=== PATIENT | female | born 1950 | race Caucasian/White ===

== ENCOUNTER 2020-05-10 15:38 | Emergency (ER) | payer MEDICARE, BC ==
[2020-05-10 16:42] LABS: CHLORIDE,CL 102 mmol/L (98-107); SODIUM,NA 141 mmol/L (136-145)
[2020-05-10 16:43] LABS: ACETAMINOPHEN 0 ug/ml (10-30); ANION GAP 11.7 mmol/L (10-20)
[2020-05-10 16:55] LABS: BARBITURATE SCREEN,URINE NEGATIVE (NEGATIVE); BENZODIAZEPINES SCREEN,URINE NEGATIVE (NEGATIVE); EDDP,URINE SCREEN NEGATIVE (NEGATIVE); METHAMPHETAMINE SCREEN, URINE NEGATIVE (NEGATIVE); TCA SCREEN,URINE NEGATIVE (NEGATIVE); THC SCREEN,URINE 50 NG/ML NEGATIVE (NEGATIVE)
[2020-05-10] MEDS ORDERED: Cephalexin 500 MG Cap PO ONE (17:09)
--- NOTE | 2020-05-10 18:57 | EDM.PDOCBH ---
ED HPI GENERAL MEDICAL PROBLEM - General Chief Complaint: Behavioral/Psych Time Seen by Provider: 05/10/20 15:45 Source of Information: Reports: Patient - History of Present Illness INITIAL COMMENTS - FREE TEXT/NARRATIVE: Patient comes emergency department today from home by ambulance with concerns of hallucinations. According to EMS the police have been called to this patient's house about 4-5 times over the past couple of weeks because she has concerns that there are people living in her house. There is been to couples of people living in her basement that are constantly making noise and stealing from her. The police have investigated this and clearly there is no one living in the basement. There are concerns that these are hallucinations. She has been visited by [facility] who visited with her last week. Today she called the java j2ee application developer again because she thought she heard some noises in the basement from the people that have been identified and not being there. When the police got there once again there was still nobody in the basement they called the ambulance because they were concerned for her mental wellbeing. Not only does she hear things but last night when she was sitting on the couch she saw 2 sets of legs coming out from under the couch just sitting there. She has been barricading herself into her bedroom at times because she is concerned that they are going to come and hurt her. She also is missing quite a few things in her house and she feels that they are stealing them from her. She has been trying to hide some of her stuff from these people that are not there. She denies any alcohol usage or recreational drug usage. She denies any suicidal or homicidal ideation. She lives at home alone as she is retired. She has very little if any contact with her daughters that live in [place] and otherwise she has no family. She denies any history of mental illness. - Related Data Allergies Allergy/AdvReac Type Severity Reaction Status Date / Time Sulfa (Sulfonamide Allergy Cannot Verified 05/10/20 15:51 Antibiotics) Remember Home Meds: Home Meds Lutein/Minerals/Vit A,C & E [Ocuvite] 1 tab PO DAILY 05/10/20 [History] Multivitamin [Gummi Bear Multivitamin] 1 each PO DAILY 05/10/20 [History] cephALEXin [Cephalexin] 500 mg PO QID #12 tablet 05/10/20 [Rx] Past Medical History Other Cardiovascular History: carotidynia Psychiatric History: Reports: Anxiety Hematologic History: Reports: Anemia Social & Family History - Tobacco Use Smoking Status *Q: Never Smoker ED ROS GENERAL - Review of Systems Review Of Systems: Comprehensive ROS is negative, except as noted in HPI. ED EXAM, BEHAVIORAL HEALTH - Physical Exam Exam: See Below Text/Narrative:: This is a well groomed well hygiene and appropriately dressed female for the appropriate conditions. Exam Limited By: No Limitations General Appearance: Alert, WD/WN, No Apparent Distress Eye Exam: Bilateral Eye: EOMI, PERRL Ears: Normal External Exam, Normal TMs Throat/Mouth: Normal Inspection Head: Atraumatic Neck: Normal Inspection Respiratory/Chest: No Respiratory Distress, Lungs Clear, No Accessory Muscle Use Cardiovascular: Normal Peripheral Pulses, Regular Rate, Rhythm Extremities: Normal Inspection Neurological: Alert, Normal Mood/Affect, CN II-XII Intact, Normal Cognition, Normal Gait, Normal Reflexes, No Motor/Sensory Deficits, Oriented x 3 Psychiatric: Alert, Normal Affect, Normal Cognition, Oriented, Poor Eye Contact, Tangential Thoughts, Auditory Hallucinations, Visual Hallucinations (Reported auditory and visual hallucinations none at this time.). No: Depressed Mood, Agitated, Inattentive, Homicidal Thoughts, Suicidal Plan, Suicidal Thoughts Skin Exam: Warm, Dry, Intact, Normal color COURSE, BEHAVIORAL HEALTH COMP - Course Vital Signs: Last Vital Signs Temp 96.9 F 05/10/20 15:38 Pulse 70 05/10/20 15:38 Resp 16 05/10/20 15:38 BP 132/65 05/10/20 15:38 Pulse Ox 97 05/10/20 15:38 Orders, Labs, Meds: Active Orders 24 hr Category Date Time Status CULTURE URINE [RM] Stat Lab 05/10/20 16:51 Results SALICYLATE [REF] Stat Lab 05/10/20 16:08 Received Laboratory Tests 05/10/20 05/10/20 05/10/20 Range/Units 16:08 16:08 16:51 WBC 5.4 (4.0-10.0) x10^3/uL RBC 3.83 L (4.00-5.50) x10^6/uL Hgb 12.5 (12.0-16.0) g/dL Hct 37.3 (33.0-47.0) % MCV 97.4 H (78.0-93.0) fL MCH 32.6 H (26.0-32.0) pg MCHC 33.5 (32.0-36.0) g/dL RDW Coeff of Tyler 11.4 (10.0-15.0) % Plt Count 128 L (130-400) x10^3/uL Neut % (Auto) 52.9 (50.0-80.0) % Lymph % (Auto) 37.9 (25.0-50.0) % [place] % (Auto) 7.4 (2.0-11.0) % Eos % (Auto) 0.9 (0.0-4.0) % Baso % (Auto) 0.9 (0.2-1.2) % Sodium 141 (136-145) mmol/L Potassium 3.7 (3.5-5.1) mmol/L Chloride 102 (98-107) mmol/L Carbon Dioxide 31 (21-32) mmol/L Anion Gap 11.7 (10-20) mmol/L BUN 17 (7-18) mg/dL Creatinine 0.9 (0.55-1.02) mg/dL Est Cr Clr Drug Dosing TNP Estimated GFR (MDRD) > 60 Glucose 93 (74-106) mg/dL Calcium 8.6 (8.5-10.1) mg/dL Corrected Calcium 8.76 (8.5-10.1) mg/dL Magnesium 1.9 (1.8-2.4) mg/dL Total Bilirubin 0.4 (0.2-1.0) mg/dL AST 26 (15-37) U/L ALT 23 (14-59) U/L Alkaline Phosphatase 92 (46-116) U/L Total Protein 7.5 (6.4-8.2) g/dL Albumin 3.8 (3.4-5.0) g/dL Globulin 3.7 Albumin/Globulin Ratio 1.03 TSH, Ultra Sensitive 7.551 H (0.358-3.74) uIU/mL Urine Color Dark yellow H (YELLOW) Urine Appearance Slightly cloudy H (CLEAR) Urine pH 5.5 (5.0-8.0) Ur Specific Outing 1.025 Urine Protein Negative (NEGATIVE) mg/dL Urine Glucose (UA) Negative (NEGATIVE) mg/dL Urine Ketones Trace H (NEGATIVE) mg/dL Urine Occult Blood Negative (NEGATIVE) Urine Nitrite Positive H (NEGATIVE) Urine Bilirubin Negative (NEGATIVE) Urine Urobilinogen 0.2 (0.2) EU/dL Ur Leukocyte Esterase Moderate H (NEGATIVE) Urine RBC 0-5 (NOT SEEN) /HPF Urine WBC 10-20 H (NOT SEEN) /HPF Ur Squamous Epith Cells Few H (NEGATIVE) /HPF Urine Bacteria Few H (NEGATIVE) /HPF Urine Mucus Few H (NEGATIVE) /LPF Urine Opiates Screen (NEGATIVE) Ur Buprenorphine Scrn (NEGATIVE) Ur Oxycodone Screen (NEGATIVE) Ur EDDP (Meth Metab) (NEGATIVE) Urine Methadone Screen (NEGATIVE) Acetaminophen 0 L (10-30) ug/ml Ur Barbiturates Screen (NEGATIVE) Ur Tricyclics Screen (NEGATIVE) Ur Phencyclidine Scrn (NEGATIVE) Ur Amphetamine Screen (NEGATIVE) U Methamphetamines Scrn (NEGATIVE) Urine MDMA Screen (NEGATIVE) U Benzodiazepines Scrn (NEGATIVE) U Cocaine Metab Screen (NEGATIVE) U Marijuana (THC) Screen (NEGATIVE) Ethyl Alcohol < 3 (0-3) mg/dL 05/10/20 Range/Units 16:51 WBC (4.0-10.0) x10^3/uL RBC (4.00-5.50) x10^6/uL Hgb (12.0-16.0) g/dL Hct (33.0-47.0) % MCV (78.0-93.0) fL MCH (26.0-32.0) pg MCHC (32.0-36.0) g/dL RDW Coeff of Tyler (10.0-15.0) % Plt Count (130-400) x10^3/uL Neut % (Auto) (50.0-80.0) % Lymph % (Auto) (25.0-50.0) % [place] % (Auto) (2.0-11.0) % Eos % (Auto) (0.0-4.0) % Baso % (Auto) (0.2-1.2) % Sodium (136-145) mmol/L Potassium (3.5-5.1) mmol/L Chloride (98-107) mmol/L Carbon Dioxide (21-32) mmol/L Anion Gap (10-20) mmol/L BUN (7-18) mg/dL Creatinine (0.55-1.02) mg/dL Est Cr Clr Drug Dosing Estimated GFR (MDRD) Glucose (74-106) mg/dL Calcium (8.5-10.1) mg/dL Corrected Calcium (8.5-10.1) mg/dL Magnesium (1.8-2.4) mg/dL Total Bilirubin (0.2-1.0) mg/dL AST (15-37) U/L ALT (14-59) U/L Alkaline Phosphatase (46-116) U/L Total Protein (6.4-8.2) g/dL Albumin (3.4-5.0) g/dL Globulin Albumin/Globulin Ratio TSH, Ultra Sensitive (0.358-3.74) uIU/mL Urine Color (YELLOW) Urine Appearance (CLEAR) Urine pH (5.0-8.0) Ur Specific Outing Urine Protein (NEGATIVE) mg/dL Urine Glucose (UA) (NEGATIVE) mg/dL Urine Ketones (NEGATIVE) mg/dL Urine Occult Blood (NEGATIVE) Urine Nitrite (NEGATIVE) Urine Bilirubin (NEGATIVE) Urine Urobilinogen (0.2) EU/dL Ur Leukocyte Esterase (NEGATIVE) Urine RBC (NOT SEEN) /HPF Urine WBC (NOT SEEN) /HPF Ur Squamous Epith Cells (NEGATIVE) /HPF Urine Bacteria (NEGATIVE) /HPF Urine Mucus (NEGATIVE) /LPF Urine Opiates Screen Negative (NEGATIVE) Ur Buprenorphine Scrn Negative (NEGATIVE) Ur Oxycodone Screen Negative (NEGATIVE) Ur EDDP (Meth Metab) Negative (NEGATIVE) Urine Methadone Screen Negative (NEGATIVE) Acetaminophen (10-30) ug/ml Ur Barbiturates Screen Negative (NEGATIVE) Ur Tricyclics Screen Negative (NEGATIVE) Ur Phencyclidine Scrn Negative (NEGATIVE) Ur Amphetamine Screen Negative (NEGATIVE) U Methamphetamines Scrn Negative (NEGATIVE) Urine MDMA Screen Negative (NEGATIVE) U Benzodiazepines Scrn Negative (NEGATIVE) U Cocaine Metab Screen Negative (NEGATIVE) U Marijuana (THC) Screen Negative (NEGATIVE) Ethyl Alcohol (0-3) mg/dL Medications Discontinued Medications Generic Name Dose Route Start Last Admin Trade Name Freq PRN Reason Stop Dose Admin Cephalexin 500 mg 05/10/20 17:09 05/10/20 17:34 Keflex PO 05/10/20 17:10 500 mg ONETIME ONE Administration Cephalexin 2 packet 05/10/20 18:59 05/10/20 19:10 Take Home: Cephalexin 500 Mg, 4 Cap Pack PO 05/10/20 19:00 2 packet ONETIME ONE Administration Re-Assessment/Re-Exam: His laboratory evaluation is rather unremarkable other than some identification of hypothyroidism as well as a urinary tract infection. We will start her on Keflex 1 tab p.o. 4 times daily and culture her urine I did have a long conversation with the intake screener from the human service [facility] at the [facility]. The patient also visited with a screener for a very extended period of time probably 30 to 45 minutes. The patient refuses to give any information about her family who they are or what their phone numbers are so that we can try to coordinate her care. She refuses to go to the [facility]. The screeners plan at this time is to be able to discharge her home as she is clearly not suicidal or homicidal. The human service Center will follow up with her on a daily basis to see how she is doing and also evaluate her home situation. I want her to return and recheck with her primary care provider earlier next week not only for the urinary tract infection but also the hypothyroidism and the concerns of her hallucinations and psychiatric evaluation. Patient is comfortable with this plan and her questions are answered. Is well aware at any time that she become suicidal or homicidal she is to come to the emergency department or call 911. Clear no confusion or cognitive disorder. Departure - Departure Time of Disposition: 18:50 Disposition: Home, Self-Care 01 Clinical Impression: Hallucinations UTI (urinary tract infection) Qualifiers: Urinary tract infection type: site unspecified Hematuria presence: without hematuria Qualified Code(s): N39.0 - Urinary tract infection, site not specified Hypothyroidism Qualifiers: Hypothyroidism type: unspecified Qualified Code(s): E03.9 - Hypothyroidism, unspecified - Discharge Information Prescriptions: cephALEXin [Cephalexin] 500 mg PO QID #12 tablet Instructions: Antibiotic Medicine, Adult, [id number] Referrals: Montana Redman PA-C [Primary Care Provider] - Forms: ED Department Discharge Additional Instructions: Follow up with your PCP on Tuesday for recheck of the UTI and the concerns of the people in your home. Drink plenty of fluids. Cephalexin 1 tablet 4 times a day for the next 5 days. Rx to [facility]. The human service center will be following up with you daily for the concerns of hallucinations. Return to the ED if new or worsening symptoms. IF you ever feel unsafe for yourself or others please contact 911. Follow up with your PCP on Tuesday for recheck. Sepsis Event Note (ED) - Evaluation Sepsis Screening Result: No Definite Risk - My Orders Last 24 Hours: My Active Orders 05/10/20 16:08 SALICYLATE [REF] Stat 05/10/20 16:51 CULTURE URINE [RM] Stat - Assessment/Plan Last 24 Hours: My Active Orders 05/10/20 16:08 SALICYLATE [REF] Stat 05/10/20 16:51 CULTURE URINE [RM] Stat Assessment:: Hallucinations sure if this is acute or chronic. Not suicidal or homicidal or danger to herself or others at this time. Urinary tract infection Hypothyroidism
[2020-05-10] MEDS ORDERED: Take Home: Cephalexin 500 MG Cap, 4 Cap Pack PO ONE (18:59)
== END 2020-05-10 19:18 | disposition home or self-care (01) ==
LOC: VM.ED 15:38
DX: R44.0 Auditory hallucinations (principal); R44.1 Visual hallucinations; N39.0 Urinary tract infection, site not specified; E03.9 Hypothyroidism, unspecified; Z88.2 Allergy status to sulfonamides
CPT/HCPCS: 36415; 80053; 80305-QW; 80307; 81001; 83735; 84443; 85025; 87086; 87088; 87186; 99284; 99285; A9270-GY

== ENCOUNTER 2021-05-15 16:29 | Emergency (ER) | payer OTHER, MEDICARE, BC ==
[2021-05-15] MEDS ORDERED: Sodium Chloride 0.9% 10 ML Syringe FLUSH PRN (17:22)
--- NOTE | 2021-05-15 17:41 | EDM.PDOC ---
ED HPI GENERAL MEDICAL PROBLEM - General Chief Complaint: Chest Pain Stated Complaint: CHEST PAIN Time Seen by Provider: 05/15/21 16:55 Source of Information: Reports: Patient, Family - History of Present Illness INITIAL COMMENTS - FREE TEXT/NARRATIVE: Vero is a 71 y/o female who arrives POV to the ER with complaints of right upper chest pain that she reports started about 2:30 pm today. The pain was sharp and gradually went away. The patient could not assign a number to the pain. Se denied shortness of breath or diaphoresis. RN removed her boots to complete the EKG and her feet were very swollen and she had sores on her feet and very long toenails along with a strong odor. The patient admitted that she rarely removes her boots and that she wears them to bed most nights. She denied any pain and reports that she has not shown her daughters or her PCP her feet. She was in the [facility] 05-01-2021 and seen by Montana Redman PA-C and a CT scan was done. She was also prescribed Levothyroxine, but she said when she went to the [facility] she could not picker and packer because she did not have any money. The date of this visit 05-01-2021 was confirmed in her [facility] Chart, but she thinks it occurred yesterday. Patient reports getting her COVID shot yesterday and her arm was sore. MEDIA PLANNER / BUYER questioned about her living situation and she reports that she has "six people living in her house from [place]". "Two are men in their 60s or 70s and the others are kids, 1 boy and 3 girls, but she is not sure of their ages." She does tell [facility] that she has 2 daughters, both in [place]. When asked more about ADLs and who cooks and cleans for her, she responded "Myself". Then when asked if she cooks for the other 6 people in her house she states "No, they won't ever eat, they just sit there in my living room." She states has never heard them talk to her and they never say what they want. MEDIA PLANNER / BUYER called her daughter Amrita Gonzalez to confirm the above findings. Amrita reported that the "people" are stuffed animals that Vero thinks are people. Daughter reports that there is an Adult Protective Services case open since patient has called the police so many times in the last 2 years. The patient is currently undergoing NeuroPsych evaluation by Dr Vero Santos, a NeuroPsychiatrist who works at the [employer] in [place]. Apparently Amrita and her sister have received some papers that Vero has Dementia and that next week, at the upcoming appt, Dr Santos will tell the patient that this is her diagnosis. Amrita then told the MEDIA PLANNER / BUYER that any change in Vero's living may have to be court-ordered because she is not willing to leave her home. Patient told MEDIA PLANNER / BUYER she is still driving. Her other daughter Erika is likely going to be named as her guardian when this process is completed. Middle Chest Pain Score (Numeric/FACES): 6 - Related Data Allergies Allergy/AdvReac Type Severity Reaction Status Date / Time Sulfa (Sulfonamide Allergy Cannot Verified 05/15/21 16:49 Antibiotics) Remember Home Meds: Home Meds Lutein/Minerals/Vit A,C & E [Ocuvite] 1 tab PO DAILY 05/10/20 [History] Multivitamin [Gummi Bear Multivitamin] 1 each PO DAILY 05/10/20 [History] Levothyroxine [Synthroid] 50 mcg PO ACBREAKFAST 05/15/21 [History] hydroCHLOROthiazide [Hydrochlorothiazide] 25 mg PO DAILY 05/15/21 [History] Past Medical History Cardiovascular History: Reports: High Cholesterol Other Cardiovascular History: carotidynia Psychiatric History: Reports: Anxiety, Dementia Endocrine/Metabolic History: Reports: Hypothyroidism Hematologic History: Reports: Anemia Social & Family History - Tobacco Use Tobacco Use Status *Q: Never Tobacco User Review of Systems - Review of Systems Review Of Systems: See Below Reason Not Obtained: Very diffucult to obtain due to psychiatric status Constitutional: Reports: No Symptoms Eyes: Reports: No Symptoms Ears: Reports: No Symptoms Nose: Reports: No Symptoms Mouth/Throat: Reports: No Symptoms Respiratory: Reports: No Symptoms Cardiovascular: Reports: Chest Pain GI/Abdominal: Reports: No Symptoms Genitourinary: Reports: No Symptoms Musculoskeletal: Reports: No Symptoms Skin: Reports: No Symptoms Neurological: Reports: No Symptoms, Difficulty Walking (admits difficulty walking wihtout her boots) Psychiatric: Reports: Hallucinations (Auditory) ED EXAM, GENERAL - Physical Exam Exam: See Below General Appearance: Alert, No Apparent Distress, Thin (Elderly female lying on ER cart, wearing dark sunglasses inside. Dressed in clothes, boots off of feet and noted horrible odor in room of very poor hygiene. Note bright pink lipstick on lips that applied in a very messy fashion.), Other (Moves very slowly and speaks very slowly.) Eye Exam: Bilateral Eye: PERRL Ears: Normal External Exam, Normal Canal, Hearing Grossly Normal, Normal TMs Nose: Normal Inspection Throat/Mouth: Normal Inspection, Normal Oropharynx, Normal Voice Head: Atraumatic, Normocephalic Neck: Normal Inspection, Supple, Non-Tender Respiratory/Chest: No Respiratory Distress, Rales (scattered) Cardiovascular: Normal Peripheral Pulses, Regular Rate, Rhythm, No Murmur GI/Abdominal: Normal Bowel Sounds, Soft (Female) Exam: Deferred Rectal (Female) Exam: Deferred Back Exam: Normal Inspection, Full Range of Motion Extremities: Pedal Edema (3+ pitting edema to feet and lower legs to mid-calf region, note erythema to feet around toes with moist and peeking skin, there are large thickened callouses on the bottoms of her feet, severe odor, toenails are yellowed and thckened and obviosuly have not been cut in a long time, all are long) Neurological: Alert, CN II-XII Intact, Confused, Disoriented, Slow to Respond, Memory Loss Remote Events, Memory Loss Recent Events, Other (Has diffcult time describing course of events and all details) Psychiatric: Flat Affect Skin Exam: Warm, Dry, Intact, Normal Color Lymphatic: No Adenopathy #1 Interpretation EKG Date: 05/15/21 Time: 16:34 Rhythm: NSR Rate (Beats/Min): 83 [place]: Normal P-Wave: Present QRS: Normal ST-T: Normal QT: Normal Comparison: NA - No Prior EKG Course - Vital Signs Text/Narrative:: 1654 The patient was seen by the MEDIA PLANNER / BUYER. Labs, EKG, and CXR ordered. MEDIA PLANNER / BUYER called daughter for additional history since it was very difficult to get from the patient in an organized manner. 1729 MEDIA PLANNER / BUYER able to confirm patient history and course of events with daughter Amrita. 1852 Labs reviewed. CBC Hgb=11.8; PT/INR=1.0; CMP BUN=19; Mg=1.9; Troponin neg, TSH=5.999 (previously elevated and patient not taking meds as prescribed by PCP); UA pending; APAP neg, Salicylates=neg, ETOH=<3, COVID=neg. [facility] contacted and transfer requested, no beds available. 1852 [facility] contacted and patient not accepted for transfer due to Cognitive Disorder and excluded from their service line. 1903 [facility] Scre[facility] contacted to assess patient for transfer. Involuntary Hold placed by MEDIA PLANNER / BUYER since patient wanting to leave and upset she may be admitted. Involuntary Hold placed due to patient inability to make appropriate decisions, inability to take medications independently, lack of insight into her health. Patient represents a danger to herself and if she leaves this facility she is a danger to others while operating a motor vehicle due to the previous assessments. 1915 Contacted [facility] in [place] but no beds available for transport. 2100 UA reviewed. Note Nitrates+, Leuk Es=trace, WBC=5-10, Episa=Few, Bacteria=Few; Urine Cx pending but will recommend Macrobid 100mg po BID for UTI. 2119 [facility] contacted Dr Orr at the [facility] and patient accepted for transfer there. Plan transport via [place] [employer]. Patient remained stable until departure with law enforcement. Last Recorded V/S: Last Vital Signs Temp 35.9 C L 05/15/21 16:30 Pulse 77 05/15/21 16:30 Resp 18 05/15/21 16:30 BP 124/65 05/15/21 16:30 Pulse Ox 95 05/15/21 16:30 - Orders/Labs/Meds Orders: Active Orders 24 hr Category Date Time Status CULTURE BLOOD [BC] Stat Lab 05/15/21 17:43 Received CULTURE BLOOD [BC] Stat Lab 05/15/21 17:51 Received CULTURE URINE [RM] Stat Lab 05/15/21 18:32 Received Sodium Chloride 0.9% [Saline Flush] Med 05/15/21 17:22 Active 10 ml FLUSH ASDIRECTED PRN Blood Culture x2 Reflex Set [OM.PC] Stat Oth 05/15/21 17:22 Ordered Saline Lock Insert [OM.PC] Stat Oth 05/15/21 17:22 Ordered Medication Orders Sodium Chloride (Sodium Chloride 0.9% 10 Ml Syringe) 10 ml FLUSH ASDIRECTED PRN PRN Reason: Keep Vein Open Labs: Laboratory Tests 05/15/21 05/15/21 05/15/21 Range/Units 17:36 17:43 17:43 WBC 6.4 (4.0-10.0) x10^3/uL RBC 3.65 L (4.00-5.50) x10^6/uL Hgb 11.8 L (12.0-16.0) g/dL Hct 35.0 (33.0-47.0) % MCV 95.9 H (78.0-93.0) fL MCH 32.3 H (26.0-32.0) pg MCHC 33.7 (32.0-36.0) g/dL RDW Coeff of [place] 12.5 (10.0-15.0) % Plt Count 125 L (130-400) x10^3/uL Immature Gran % (Auto) 0.20 (0.00-0.43) % Neut % (Auto) 65.5 (50.0-80.0) % Lymph % (Auto) 25.1 (25.0-50.0) % [place] % (Auto) 7.5 (2.0-11.0) % Eos % (Auto) 1.1 (0.0-4.0) % Baso % (Auto) 0.6 (0.2-1.2) % Neut # (Auto) 4.2 (1.8-7.7) x10^3/uL Lymph # (Auto) 1.6 (1.0-4.8) x10^3/uL [place] # (Auto) 0.5 (0.0-0.8) x10^3/uL Eos # (Auto) 0.1 (0.0-0.5) x10^3/uL Baso # (Auto) 0.0 (0.0-0.2) x10^3/uL Immature Gran # (Auto) 0.01 (0.00-0.07) x10^3/uL PT 10.8 (9.9-12.5) SEC INR 1.0 L (2.0-3.5) APTT 24.5 L (25.6-32.8) SEC Sodium (136-145) mmol/L Potassium (3.5-5.1) mmol/L Chloride (98-107) mmol/L Carbon Dioxide (21-32) mmol/L Anion Gap (5-15) mmol/L BUN (7-18) mg/dL Creatinine (0.55-1.02) mg/dL Est Cr Clr Drug Dosing Estimated GFR (MDRD) Glucose (70-99) mg/dL Lactic Acid (0.4-2.0) mmol/L Calcium (8.5-10.1) mg/dL Corrected Calcium (8.5-10.1) mg/dL Magnesium (1.8-2.4) mg/dL Total Bilirubin (0.2-1.0) mg/dL AST (15-37) U/L ALT (14-59) U/L Alkaline Phosphatase (46-116) U/L Troponin I High Sens (<=51) ng/L C-Reactive Protein (<=0.9) mg/dL NT-Pro-B Natriuret Pep (<=125) pg/mL Total Protein (6.4-8.2) g/dL Albumin (3.4-5.0) g/dL Globulin Albumin/Globulin Ratio TSH, Ultra Sensitive (0.358-3.74) uIU/mL Urine Color (YELLOW) Urine Appearance (CLEAR) Urine pH (5.0-8.0) Ur Specific [place] Urine Protein (NEGATIVE) mg/dL Urine Glucose (UA) (NEGATIVE) mg/dL Urine Ketones (NEGATIVE) mg/dL Urine Occult Blood (NEGATIVE) Urine Nitrite (NEGATIVE) Urine Bilirubin (NEGATIVE) Urine Urobilinogen (0.2) EU/dL Ur Leukocyte Esterase (NEGATIVE) Urine RBC (NOT SEEN) /HPF Urine WBC (NOT SEEN) /HPF Ur Squamous Epith Cells (NOT SEEN) /HPF Urine Bacteria (NOT SEEN) /HPF Urine Mucus (NOT SEEN) /LPF Acetaminophen (10-30) ug/ml Ethyl Alcohol (0-3) mg/dL SARS CoV-2 RNA Rapid CANDICE Negative (NEGATIVE) 05/15/21 05/15/21 05/15/21 Range/Units 17:43 17:43 18:32 WBC (4.0-10.0) x10^3/uL RBC (4.00-5.50) x10^6/uL Hgb (12.0-16.0) g/dL Hct (33.0-47.0) % MCV (78.0-93.0) fL MCH (26.0-32.0) pg MCHC (32.0-36.0) g/dL RDW Coeff of [place] (10.0-15.0) % Plt Count (130-400) x10^3/uL Immature Gran % (Auto) (0.00-0.43) % Neut % (Auto) (50.0-80.0) % Lymph % (Auto) (25.0-50.0) % [place] % (Auto) (2.0-11.0) % Eos % (Auto) (0.0-4.0) % Baso % (Auto) (0.2-1.2) % Neut # (Auto) (1.8-7.7) x10^3/uL Lymph # (Auto) (1.0-4.8) x10^3/uL [place] # (Auto) (0.0-0.8) x10^3/uL Eos # (Auto) (0.0-0.5) x10^3/uL Baso # (Auto) (0.0-0.2) x10^3/uL Immature Gran # (Auto) (0.00-0.07) x10^3/uL PT (9.9-12.5) SEC INR (2.0-3.5) APTT (25.6-32.8) SEC Sodium 141 (136-145) mmol/L Potassium 3.9 (3.5-5.1) mmol/L Chloride 102 (98-107) mmol/L Carbon Dioxide 30 (21-32) mmol/L Anion Gap 12.9 (5-15) mmol/L BUN 19 H (7-18) mg/dL Creatinine 0.8 (0.55-1.02) mg/dL Est Cr Clr Drug Dosing TNP Estimated GFR (MDRD) > 60 Glucose 78 (70-99) mg/dL Lactic Acid 1.0 (0.4-2.0) mmol/L Calcium 8.5 (8.5-10.1) mg/dL Corrected Calcium 9.1 (8.5-10.1) mg/dL Magnesium 1.9 (1.8-2.4) mg/dL Total Bilirubin 0.4 (0.2-1.0) mg/dL AST 22 (15-37) U/L ALT 16 (14-59) U/L Alkaline Phosphatase 99 (46-116) U/L Troponin I High Sens 4 (<=51) ng/L C-Reactive Protein 0.2 (<=0.9) mg/dL NT-Pro-B Natriuret Pep 74 (<=125) pg/mL Total Protein 6.9 (6.4-8.2) g/dL Albumin 3.3 L (3.4-5.0) g/dL Globulin 3.6 Albumin/Globulin Ratio 0.92 TSH, Ultra Sensitive 5.999 H (0.358-3.74) uIU/mL Urine Color Yellow (YELLOW) Urine Appearance Cloudy H (CLEAR) Urine pH 6.0 (5.0-8.0) Ur Specific [place] 1.025 Urine Protein Negative (NEGATIVE) mg/dL Urine Glucose (UA) Negative (NEGATIVE) mg/dL Urine Ketones 15 H (NEGATIVE) mg/dL Urine Occult Blood Negative (NEGATIVE) Urine Nitrite Positive H (NEGATIVE) Urine Bilirubin Negative (NEGATIVE) Urine Urobilinogen 1.0 (0.2) EU/dL Ur Leukocyte Esterase Trace H (NEGATIVE) Urine RBC 0-5 (NOT SEEN) /HPF Urine WBC 5-10 H (NOT SEEN) /HPF Ur Squamous Epith Cells Few H (NOT SEEN) /HPF Urine Bacteria Many H (NOT SEEN) /HPF Urine Mucus Occasional H (NOT SEEN) /LPF Acetaminophen 0 L (10-30) ug/ml Ethyl Alcohol < 3 (0-3) mg/dL SARS CoV-2 RNA Rapid CANDICE (NEGATIVE) Meds: Medications Generic Name Dose Route Start Last Admin Trade Name Freq PRN Reason Stop Dose Admin Sodium Chloride 10 ml 05/15/21 17:22 Sodium Chloride 0.9% 10 Ml Syringe FLUSH ASDIRECTED PRN Keep Vein Open - Radiology Interpretation Free Text/Narrative:: XR Chest 1V-no acute findings (See final report) Departure - Departure Time of Disposition: 21:29 Disposition: DC/Tfer to Psych Hosp/Unit 65 Condition: Good Clinical Impression: Delusional disorder, Cognitive disorder, Lower leg edema, Unable to care for self, Medication noncompliance due to cognitive impairment UTI (urinary tract infection) Qualifiers: Urinary tract infection type: site unspecified Hematuria presence: without hematuria Qualified Code(s): N39.0 - Urinary tract infection, site not specified Trench feet Qualifiers: Encounter type: initial encounter Laterality: unspecified laterality Qualified Code(s): T69.029A - Immersion foot, unspecified foot, initial encounter - Discharge Information Referrals: Montana Redman PA-C [Primary Care Provider] - Forms: ED Department Discharge Sepsis Event Note (ED) - Focused Exam Vital Signs: Vital Signs Temp Pulse Resp BP Pulse Ox 05/15/21 16:30 35.9 C L 77 18 124/65 95 - Problem List & Annotations (1) Cognitive disorder SNOMED Code(s): 135226770 Code(s): F09 - UNSP MENTAL DISORDER DUE TO KNOWN PHYSIOLOGICAL CONDITION Status: Acute Current Visit: Yes (2) Delusional disorder SNOMED Code(s): 93250093 Code(s): F22 - DELUSIONAL DISORDERS Status: Acute Current Visit: Yes Annotation/Comment:: -Dr Hansen-NeuroPyschologist has diagnosed the 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 -Daughters attempting to obtain gaurdianship and get patient placed in memory care facilty with SNF or Assisted Living -Involuntary Hold Placed since patient is harm to herself in recent actions and would also present harm to others if she was driving (3) Medication noncompliance due to cognitive impairment SNOMED Code(s): 201336198, 155600959 Code(s): Z91.14 - PATIENT'S OTHER NONCOMPLIANCE WITH MEDICATION REGIMEN Status: Acute Current Visit: Yes Annotation/Comment:: -Patient needs to be taking Levothyroxine for elevated TSH but has not picked up Rx from PCP -Current recommended dose is Levothyroxine 50mcg po qd (4) Trench feet SNOMED Code(s): 942825265 Code(s): T69.029A - IMMERSION FOOT, UNSPECIFIED FOOT, INITIAL ENCOUNTER Status: Acute Current Visit: Yes Annotation/Comment:: -Needs good hygiene and foot with proper shoes -May need anifungal or steroid cream Qualifiers: Encounter type: initial encounter Laterality: unspecified laterality Qualified Code(s): T69.029A - Immersion foot, unspecified foot, initial encounter (5) UTI (urinary tract infection) SNOMED Code(s): 06699475 Code(s): N39.0 - URINARY TRACT INFECTION, SITE NOT SPECIFIED Status: Acute Current Visit: Yes Annotation/Comment:: -Nitrates on UA, given Ceftriaxone 1gm IVP in ER and then receommend Macrobid 100mg po BID x 7 days Qualifiers: Urinary tract infection type: site unspecified Hematuria presence: without hematuria Qualified Code(s): N39.0 - Urinary tract infection, site not specified (6) Chest pain SNOMED Code(s): 67363569 Code(s): R07.9 - CHEST PAIN, UNSPECIFIED Status: Acute Current Visit: Yes (7) Chest pain SNOMED Code(s): 27722116 Code(s): R07.9 - CHEST PAIN, UNSPECIFIED Status: Acute Current Visit: Yes Annotation/Comment:: -Initial presenting complaint to the ER -Troponin negative -EKG=Normal Sinus Rhythm (8) Lower leg edema SNOMED Code(s): 099786685 Code(s): R60.0 - LOCALIZED EDEMA Status: Acute Current Visit: Yes Annotation/Comment:: -Note 3+ bitting in lower legs, exacerbated by noncompliance to diuretic meds. -Constant wearing of leather boots that are ill-fitting has aggrevated the problem. -Needs to be on HCTZ 25mg po qd per PCP (9) Unable to care for self SNOMED Code(s): 634050449, 862735319 Code(s): Z78.9 - OTHER SPECIFIED HEALTH STATUS Status: Acute Current Visit: Yes Annotation/Comment:: -Demonstrated by poor hygiene and condition of feet along with inability to take meds as needed - Problem List Review Problem List Initiated/Reviewed/Updated: Yes - My Orders Last 24 Hours: My Active Orders 05/15/21 17:22 Sodium Chloride 0.9% [Saline Flush] 10 ml FLUSH ASDIRECTED PRN Blood Culture x2 Reflex Set [OM.PC] Stat Saline Lock Insert [OM.PC] Stat 05/15/21 17:43 CULTURE BLOOD [BC] Stat 05/15/21 17:51 CULTURE BLOOD [BC] Stat 05/15/21 18:32 CULTURE URINE [RM] Stat - Assessment/Plan Last 24 Hours: My Active Orders 05/15/21 17:22 Sodium Chloride 0.9% [Saline Flush] 10 ml FLUSH ASDIRECTED PRN Blood Culture x2 Reflex Set [OM.PC] Stat Saline Lock Insert [OM.PC] Stat 05/15/21 17:43 CULTURE BLOOD [BC] Stat 05/15/21 17:51 CULTURE BLOOD [BC] Stat 05/15/21 18:32 CULTURE URINE [RM] Stat Plan: -Transfer to the [facility] by Law Enforcement -Involuntary Hold in place
[2021-05-15 18:16] LABS: PTT,PARTIAL THROMBOPLSTIN TIME 24.5 SEC (25.6-32.8)
[2021-05-15 18:25] LABS: CHLORIDE,CL 102 mmol/L (98-107); SODIUM,NA 141 mmol/L (136-145)
[2021-05-15 18:26] LABS: ACETAMINOPHEN 0 ug/ml (10-30); ANION GAP 12.9 mmol/L (5-15)
--- NOTE | 2021-05-15 18:27 | CR ---
[id number] RAD/RAD Chest PA or AP 1V EXAM: RAD Chest PA or AP 1V INDICATION: RALES, CHEST PAIN. COMPARISON: None. DISCUSSION/IMPRESSION: Cardiomediastinal silhouette is normal in size and contour. No pleural effusion or pneumothorax. Fairly symmetric nodular opacities project over both lung bases. This is most consistent with nipple artifact. Lungs are otherwise clear. Consider repeat examination with nipple markers versus noncontrast chest CT for further evaluation as clinically warranted. Sage Blake MD 05/15/21 [id number] Thank you for allowing us to participate in the care of your patient.
[2021-05-15] MEDS: cefTRIAXone 1 GM Vial IVPUSH ONE ×2 (22:00→22:02)
== END 2021-05-15 23:05 ==
LOC: VM.ED 16:29
DX: F22 Delusional disorders (principal); N39.0 Urinary tract infection, site not specified; T69.029A Immersion foot, unspecified foot, initial encounter; E78.00 Pure hypercholesterolemia, unspecified; E03.9 Hypothyroidism, unspecified; D64.9 Anemia, unspecified; Z20.822 Contact with and (suspected) exposure to COVID-19; Z91.14 Patient's other noncompliance with medication regimen; Z88.2 Allergy status to sulfonamides; Z79.899 Other long term (current) drug therapy
CPT/HCPCS: 36415; 71045; 80053; 80143; 80307; 81001; 83605; 83735; 83880; 84443; 84484; 85025; 85610; 85730; 86140; 87040; 87086; 87088; 87186; 93005; 93010; 99284; 99285-25; J0696; U0002